=== PATIENT | male | born 1950 | race Asian ===

== ENCOUNTER 2023-01-28 18:24 | Emergency (ER) | payer MEDICARE ==
[~2023-01-28] VITALS: Ht 167.6 cm; Wt 77.1 kg
[2023-01-28 18:30] VITALS: BP_SYST 99; PULSE 82; RESP 20; TEMP 97.5; O2SAT 97
[2023-01-28 19:16] LABS: BASOPHILS # (AUTO) 0.1 K/uL (0.0-0.2); BASOPHILS % (AUTO) 0.7 % (0.0-2.0); EOSINOPHILS # (AUTO) 0.1 K/uL (0.0-0.4); EOSINOPHILS % (AUTO) 0.6 % (0.0-4.0); HEMATOCRIT 41.7 % (36-54); HEMOGLOBIN 14.5 g/dL (14.0-18.0); LYMPHOCYTES # (AUTO) 1.9 K/uL (1.0-5.5); LYMPHOCYTES % (AUTO) 19.4 % (20.5-51.5); MEAN CORPUSCULAR HEMOGLOBIN 31 pg (27-31); MEAN CORPUSCULAR HGB CONC 35 % (32-36); MEAN CORPUSCULAR VOLUME 91 fL (79.0-98.0); MONOCYTES # (AUTO) 0.7 K/uL (0.0-1.0); MONOCYTES % (AUTO) 7.1 % (1.7-9.3); NEUTROPHILS % (AUTO) 72.2 % (40.0-70.0); PLATELET COUNT (AUTO) 175 K/uL (130-430); RED CELL DISTRIBUTION WIDTH 13.5 % (9.0-15.0); WHITE BLOOD COUNT (AUTO) 9.6 K/uL (4.8-10.8)
[2023-01-28 19:21] LABS: ANION GAP 11 (5-15); CALCIUM 8.7 mg/dL (8.4-11.0); CARBON DIOXIDE 26 mmol/L (23-29); CHLORIDE 101 mmol/L (98-107); CREATININE 1.18 mg/dL (0.55-1.30); GLUCOSE 134 mg/dL (74-106); POTASSIUM 3.8 mmol/L (3.5-5.1); SODIUM SERUM 138 mmol/L (136-145); UREA NITROGEN, BLOOD 20 mg/dL (8-21)
[2023-01-28 19:23] LABS: PROTHROMBIN TIME 10.3 SECS (9.5-12.5)
[2023-01-28 19:27] LABS: GFR AFRICAN AMERICAN 78 mL/min (>90); GFR NON AFRICAN-AMERICAN 65 mL/min (>90)
[2023-01-28 19:34] LABS: ALANINE AMINOTRANSFERASE 39 U/L (12-78); ALBUMIN 3.8 g/dL (3.4-4.8); ALCOHOL, BLOOD 57 mg/dL (<10); ASPARTATE AMINOTRANSFERASE 18 U/L (10-37); BILIRUBIN,DIRECT 0.2 mg/dL (0.0-0.3); CREATINE KINASE, TOTAL 47 U/L (39-308); THYROID STIMULATING HORMONE 4.55 uIu/mL (0.34-4.82); TOTAL BILIRUBIN 0.5 mg/dL (0.0-1.0); TOTAL PROTEIN, SERUM 6.8 g/dL (6.4-8.3)
[2023-01-28 20:10] LABS: ACETONE, SERUM NEGATIVE (NEGATIVE)
[2023-01-28 20:36] VITALS: BP_SYST 104; PULSE 112; RESP 18; TEMP 97.5; O2SAT 93
== END 2023-01-28 18:35 | disposition home or self-care (01) ==
LOC: SED 18:24
DX: R55 Syncope and collapse (principal); F10.129 Alcohol abuse with intoxication, unspecified; R42 Dizziness and giddiness; I10 Essential (primary) hypertension; Z79.899 Other long term (current) drug therapy; Y90.6 Blood alcohol level of 120-199 mg/100 ml
CPT/HCPCS: 99285; 70450; 71045; 80076; 80048; 82009; 82550; 84439; 84443; 85025; 85610; 85730; 84484; 36415; 93005; 76376; G0482